=== PATIENT | female | born 1945 ===

== ENCOUNTER → 2017-08-03 | Outpatient (CLI) | payer BC, OTHER ==
--- NOTE | 2017-08-03 09:06 | DIAGNOSTIC IMAGING REPORT ---
L ANKLE MIN 3 VIEWS CLINICAL HISTORY: 71 years-old Female presenting with LEFT ANKLE PAIN. TECHNIQUE: Frontal, mortise, and lateral views of the left ankle were obtained. COMPARISON: None. FINDINGS: Ankle mortise intact. Mild osteophytosis suggested at the ankle mortise. No acute fracture or subluxation. Ossification at the insertion of the Achilles tendon may relate to prior injury. Prominent bone spur at the inferior calcaneus. Calcification inferior to the cuboid on lateral view may suggest prior injury or chronic degenerative change. IMPRESSION: 1. No convincing evidence of acute osseous injury of the left ankle. 2. Mild degenerative changes of the ankle. Electronically signed by: Dalton Menjivar M.D. 08/03/2017 9:05 AM Dictated Date/Time: 08/03/2017 9:03 AM
== END | disposition home or self-care (01) ==
LOC: C.RDSM 08:45
PROVIDERS: ATTEND Internal Medicine
DX: M25.572 Pain in left ankle and joints of left foot (principal)